=== PATIENT | female | born 1950 | race Caucasian/White ===

== ENCOUNTER 2016-12-13 18:01 | Emergency (ER) | payer MEDICARE, OTHER ==
[~2016-12-13 18:01] MED LIST: ANTIVERT 25MG T25 MG PO; ASPIR 8181 MG PO; COLACE 100MG C100 MG PO; CYMBALTA60 MG PO; ELAVIL 10 MG TA10 MG PO; FISH OIL 1,0001 EAC4 PO; GLUCOTROL5 MG PO; HYZAAR 100-251 EACH PO; JANUVIA50 MG PO; LIPITOR TAB 2020 MG PO; LYRICA150 MG PO; MAXALT10 MG PO; METFORMIN HCL500 MG PO; MOBIC7.5 MG PO; NEXIUM40 MG PO; SINGULAIR10 MG PO; SKELAXIN TAB 8800 MG PO; SYMBICORT 16010.2 GM INH; SYNTHROID75 MCG PO; THEO-DUR 300 M300 MG PO; TOUJEO SQ; TYLENOL W/CODEIN1 E1 PO; VESICARE5 MG PO; ZYLOPRIM 100 M100 MG PO
== END 2016-12-13 20:55 | disposition left against medical advice (07) ==
LOC: ER1 18:01
DX: Z53.21 Procedure and treatment not carried out due to patient leaving prior to being seen by health care provider (principal)

== ENCOUNTER 2016-12-28 15:51 | Emergency (ER) | payer MEDICARE, OTHER | END 2016-12-28 18:38 | disposition home or self-care (01) | LOC: ER1 15:51 | DX: J06.9 Acute upper respiratory infection, unspecified (principal); M25.552 Pain in left hip; G89.29 Other chronic pain; R51 Headache; E11.9 Type 2 diabetes mellitus without complications; I10 Essential (primary) hypertension; J45.909 Unspecified asthma, uncomplicated; Z90.49 Acquired absence of other specified parts of digestive tract; Z79.899 Other long term (current) drug therapy | CPT/HCPCS: 70450; 71020; 73502; 87081; 87880; 99284 ==

== ENCOUNTER 2017-01-04 10:14 | Emergency (ER) | payer MEDICARE, OTHER ==
[2017-01-04 11:42] LABS: HEMOGLOBIN 14.4 gm/dl (12.3-15.3); RED BLOOD COUNT 5.28 M/UL (4.00-5.10); WHITE BLOOD COUNT 10.6 K/UL (4.5-11.0)
[2017-01-04 12:24] LABS: BUN/CREATININE RATIO 22 (0-10)
== END 2017-01-04 15:20 | disposition home or self-care (01) ==
LOC: ER1 10:14
PROVIDERS: Emergency Medicine
DX: R53.1 Weakness (principal); I10 Essential (primary) hypertension; J44.9 Chronic obstructive pulmonary disease, unspecified; Z79.82 Long term (current) use of aspirin; Z79.899 Other long term (current) drug therapy
CPT/HCPCS: 36415; 70450; 71010; 80053; 82550; 82553; 82962; 83874; 84484; 85025; 93005; 96374; 99283; J2405

== ENCOUNTER 2017-06-12 15:20 | Emergency (ER) | payer MEDICARE, OTHER ==
[2017-06-12 17:48] LABS: HEMOGLOBIN 14.4 gm/dl (12.3-15.3); RED BLOOD COUNT 5.29 M/UL (4.00-5.10); WHITE BLOOD COUNT 9.3 K/UL (4.5-11.0)
== END 2017-06-12 23:40 | disposition home or self-care (01) ==
LOC: ER1 15:20
PROVIDERS: Emergency Medicine
DX: R07.9 Chest pain, unspecified (principal); I10 Essential (primary) hypertension; E11.9 Type 2 diabetes mellitus without complications; J45.909 Unspecified asthma, uncomplicated; Z88.8 Allergy status to other drugs, medicaments and biological substances; Z91.040 Latex allergy status
CPT/HCPCS: 71010; 80053; 82550; 82553; 83874; 84484; 85025; 93005; 96360; 99285